=== PATIENT | male | born 1950 | race Caucasian/White ===

== ENCOUNTER → 2017-04-14 | Outpatient (CLI) | payer BC ==
[~2017-04-14] MED LIST: ASCO10003 PO; CHOL100010 PO; FIBER WELL GUMMIES PO; FINA5TAB PO; GADAVIST IV PRN; LISI-461 PO; LISI-786 PO; MULT-506 PO; MULTCAP31 PO; OMEGCAP2 PO; TAMS0.4C38 PO
--- NOTE | 2017-04-14 18:26 | DIAGNOSTIC IMAGING REPORT ---
BRAIN COMBO FOR IAC CLINICAL HISTORY: RIGHT SENSORY HEARING LOSS R/O VESTIBULAR SCHWANNOMA mental status change TECHNIQUE: Multiaxial MRI acquisition COMPARISON STUDY: None FINDINGS: Signal characteristics of the cerebellar as well as cerebral hemispheres are unremarkable. Moderate chronic small vessel change is identified in the periventricular and deep white matter regions. Ventricular system is midline. Diffusion images show no evidence for an acute ischemic insult. Postcontrast images are unremarkable. No abnormal enhancement is identified. Structures of the internal auditory canals are unremarkable. 7th and 8th nerves show no abnormal enhancement characteristics. There sella and parasellar regions are unremarkable. IMPRESSION: 1. Moderate chronic small vessel change throughout both cerebral hemispheres. 2. Mild age-related atrophy. 3. Otherwise normal exam. 4. Normal internal auditory canals. The above report was generated using voice recognition software. It may contain grammatical, syntax or spelling errors. Electronically signed by: Henok Pryor M.D. 04/14/2017 6:25 PM Dictated Date/Time: 04/14/2017 6:20 PM
== END | disposition home or self-care (01) ==
LOC: C.MRI 16:20
PROVIDERS: ATTEND Physician Assistant
DX: H93.12 Tinnitus, left ear (principal)